=== PATIENT | male | born 2005 | race Caucasian/White ===

== ENCOUNTER 2025-02-09 20:51 | Emergency (ER) | payer BC, SELFPAY ==
[2025-02-09 21:04] VITALS: BP 124/69; PULSE 88; RESP 18; TEMP 36.9; O2SAT 97; BMI 25.0
[2025-02-09 22:08] VITALS: O2SAT 98
--- NOTE | 2025-02-09 22:08 | CRLHL7_ITS ---
For Patients: As a result of the Century Cures Act, medical imaging exams and procedure reports are released immediately into your electronic medical record. You may view this report before your referring provider. If you have questions, please contact your health care provider. Indication: Chest pain. Technique: Chest two views. Comparison: None. Findings/Impression: The heart is not abnormally enlarged. Mediastinal contours are grossly within normal limits. No confluent airspace opacity appreciated. No pleural effusion or pneumothorax. No acute osseous abnormality. Dictated by Myles Walker MD @ 02/09/2025 10:55:06 PM (Electronically Signed)
--- OUTSIDE RECORDS SUMMARY | 2025-02-09 22:23 | XMS_ITS | Clinical Summary ---
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 22 g 5 02/05/20 25 cephalexin 500 mg capsuleIndicati ons:Cellulitis of right lower extremity Take 1 Capsule (500 mg) by mouth three times daily for 5 days. 15 Capsule 5 02/05/20 25 Active Problems No known active problems Encounters Date Type Department Care Team Description 01/30/2025 Telephone [facility] [address] [place] [address] Cricket Duarte MD Skin Problem from Last 3 Months Immunizations Immunization Administration Dates Next Due DTaP-IPV (Kinrix) 12/05/2008 Dtap-5 Pertussis Antigens 06/30/2005,09/09/2004, 05/27/2004,2003 HIB PRP-OMP (PedvaxHIB) 09/09/2004,05/27/2004, HPV 9 (Gardasil 9) 12/05/2020,12/14/2018, 019 HepA-HepB (Twinrix) 10/14/2018 Hepatitis B, Unspecified 09/15/2006(Deferred: Errol dey Refused) Inactivated Polio Vaccine 09/09/2004,05/27/2004, 2003 Influenza A (H1N1), Inactivated 04/07/2009 Influenza, IIV4 04/10/2020 MMR 12/05/2008,06/30/2005 Meningococcal Vaccine (Menactra) 12/05/2020,08/3 05/2015 Pneumococcal, Unspecified 09/15/2006(Deferred: P atient Refused) Tdap 10/13/2015 Varicella Vaccine 09/15/2006(Deferred: Patient R efused) Social History Tobacco Use Types Packs/Day Years Used Date Smoking Tobacco: Never Assessed Sex and Gender Information Value Date Recorded Sex Assigned at Not on file Legal Sex Male 1:05 PM CDT Gender Identity Not on file Sexual Orientation Not on file Obstetrics History Last Filed Vital Signs Vital Sign Reading Time Taken Comments Blood Pressure 113/70 03/26/2023 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 Pulse 57 03/26/2023 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 Temperature 36.6 C (97.8 F) 10/13/2015 1:35 PM CDT Respiratory Rate 18 10/13/2015 1:35 PM CDT Oxygen Saturation 100% 03/26/2023 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 Inhaled Oxygen Concentration - - Weight 89 kg (196 lb 3.2 oz) 03/26/2023 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 Height 192.6 cm (6' 3.83) 03/26/2023 7:26 AM CS T Body Mass Index 23.99 03/26/2023 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 Plan of Treatment Health Maintenance Due Date Last Done Comments Depression screening for age 12+ 2015 HIV for age 15-65 2018 Hepatitis B series for 19+ (2 of 3 - 3-dose series) 11/11/2018 10/14/2018 Hepatitis C screening for age 18-79 2021 BMI (ht and wt on same day) for age 18+ 03/26/2024 03/26/2023 COVID-19 vaccine series (2024- season) 2025 02/18/2023, 02/27/2022, 05/02/2021, Additional history exists Influenza Vaccine (#1) 2025 04/10/2020 Tetanus booster 10/12/2025 10/13/2015 RSV vaccine for adults or (1 - 1-dose 75+ series) 2078 HPV series for age 9-45 Completed 12/06/19, 12/14/2018, 10/14/2018 Meningococcal series for age 11-21 Completed 12/05/2020, 01/16/2016 Pneumococcal series for age 6-49 Aged Out No longer eligible based on patient's age to complete this topic Insurance [employer] 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 PCP - General 02/17/22
[2025-02-09 22:30] LABS: Lactate* 0.5 mmol/L (0.5-1.9)
[2025-02-09 22:31] LABS: Hematocrit* 41.9 % (37.0-53.0); Hemoglobin* 14.0 gm/dL (13.5-17.5); Immature Granulocytes Abs Auto 0.00 K/uL (0.00-0.30); Immature Granulocytes Pct Auto 0.0 %; Lymphocytes Absolute Auto 1.61 K/uL (0.90-2.90); Mean Corpuscular HGB Conc 33 gm/dL (32-36); Mean Corpuscular Hemoglobin 29 pg (26-34); Mean Corpuscular Volume 86 fL (80-100); RDW Coefficient of Variation % 12.5 % (11.5-15.5); Red Blood Count* 4.86 m/uL (4.30-5.90); White Blood Count* 6.98 K/uL (4.50-11.00)
--- NOTE | 2025-02-09 22:31 | ED.GENADULT ---
HPI - General Adult General Chief complaint: Arrhythmia/Palpitations Stated complaint: heart palpitations Time Seen by Provider: 02/09/25 22:08 Source: patient Mode of arrival: ambulatory Limitations: no limitations History of Present Illness HPI narrative: 19-year-old male presenting today with what he describes as a twitch in his chest. Patient states that he finished soccer practice and then felt a twitching in his chest for approximately 4 straight hours. He states that when this was happening he felt a little lightheaded. No nausea or vomiting. He has been fighting a cold for the last few days but that has gotten better. He denied any chest pain or significant shortness of breath when this occurred. He states that in the past every now and then he feels that same twitch but it only happens once or twice that he forgets about it. It has never been consistent like this for 4 straight hours. He states that now it has gone back to normal. He states that when he was feeling his pulse while this was happening he felt like his heart was skipping beats. He denies any family history of cardiac arrhythmias. Related Data Home Medications ?Medication ?Instructions ?Recorded ?Confirmed No Known Home Medications 02/09/25 02/09/25 Allergies Allergy/AdvReac Type Severity Reaction Status Date / Time No Known Drug Allergies Allergy Verified 02/09/25 21:03 Review of Systems Status of ROS: Reports: 10 or more systems reviewed and unremarkable except as noted in History and below [facility] Social History Smoking Status: Never smoker Do you use any of these nicotine containing products: None Second hand tobacco smoke exposure: No How often do you have a drink containing alcohol: 2-4 times a month How many standard drinks containing alcohol do you have on a typical day: 1 or 2 How often do you have six or more drinks on one occasion: Less than monthly AUDIT-C Alcohol total score: 3 Non-prescribed substance use: denies use service: No Exam Narrative: Exam Narrative: Well-nourished well-developed patient in no acute distress. Alert and oriented. Answers questions appropriately. Mood and affect are appropriate. Thoughts are goal oriented and rational. No tangential or magical thinking noted. Patient speaks in full sentences without needing to catch His breath. HEENT: Normocephalic atraumatic. Pupils are equally round reactive to light. Extraocular muscles are intact. Conjunctivae are moist without any icterus noted. Cardiovascular: Heart is regular rate and rhythm S1 and S2 are present without any murmurs. Lungs: Clear to auscultation bilaterally no wheezes rhonchi or rales are appreciated. Patient takes deep breaths without any discomfort. Extremities: Bilateral lower extremities are without edema. Normal DP and PT pulses. Skin: Well perfused without any obvious rashes. Const: Vital Signs, click to edit/add: Vital Signs - 24 hr 02/09/25 21:04 02/09/25 22:08 Temperature 98.4 F Pulse Rate [Pulse Oximeter] 88 Respiratory Rate 18 [facility] 124[facility]69 Pulse Oximetry 97 98 Oxygen Delivery Me thod Room Air Course Course ED Course: Patient's blood work was entirely normal. Chest x-ray, read by me, does not show any acute pathology. EKG, read by me, shows normal sinus rhythm with a pulse of 73, he does have an RSR' pattern in V1. While on a heart monitor patient did state that he felt those which is every meal mentally did correspond with PACs on the heart monitor. Vital Signs Vital signs: Initial Vital Signs Temperature 98.4 F 02/09/25 21:04 Temperature Source Temporal Artery Scan 02/09/25 21:04 Pulse Rate 88 02/09/25 21:04 Respiratory Rate 18 02/09/25 21:04 Blood Pressure 124/69 02/09/25 21:04 Blood Pressure Mean 87 02/09/25 21:04 Pulse Oximetry 97 02/09/25 21:04 Oxygen Delivery Method Room Air 02/09/25 21:04 Vital Signs Temperature 98.4 F 02/09/25 21:04 Pulse Rate 88 02/09/25 21:04 Respiratory Rate 18 02/09/25 21:04 Blood Pressure 124/69 02/09/25 21:04 Pulse Oximetry 97 02/09/25 21:04 Oxygen Delivery Method Room Air 02/09/25 21:04 Temperature 98.4 F 02/09/25 21:04 Pulse Rate 88 02/09/25 21:04 Respiratory Rate 18 02/09/25 21:04 Blood Pressure 124/69 02/09/25 21:04 Pulse Oximetry 98 02/09/25 22:08 Oxygen Delivery Method Room Air 02/09/25 21:04 Medical Decision Making MDM Narrative Medical decision making narrative: [age] male with palpitations. Duration of which concerning. RSR abnormality noted on EKG could be a normal variant, however given his symptomatic palpitations earlier in the day I do recommend an echocardiogram. Lab Data Lab results reviewed: Yes I reviewed the patient's lab results Labs: Lab Results 02/09/25 02/09/25 Range/Units 22:15 22:25 WBC 6.98 (4.50-11.00) K/uL RBC 4.86 (4.30-5.90) m/uL Hgb 14.0 (13.5-17.5) gm/dL Hct 41.9 (37.0-53.0) % MCV 86 (80-100) fL MCH 29 (26-34) pg MCHC 33 (32-36) gm/dL RDW Coeff of Coco 12.5 (11.5-15.5) % Plt Count 163 (140-440) K/uL Neut % (Auto) 61.0 (42.0-72.0) % Lymph % (Auto) 23.1 (20-44) % [place] % (Auto) 13.0 H (0.0-11.0) % Eos % (Auto) 2.6 (0.0-7.0) % Baso % (Auto) 0.3 (0.0-3.0) % Neut # (Auto) 4.26 (1.7-7.0) K/uL Lymph # (Auto) 1.61 (0.90-2.90) K/uL [place] # (Auto) 0.90 (0.00-0.90) K/UL Eos # (Auto) 0.18 (0.00-0.50) K/uL Baso # (Auto) 0.02 (0.00-0.30) K/uL Abs Immat Gran (auto) 0.00 (0.00-0.30) K/uL Imm/Tot Granulo (auto) 0.0 % Sodium 136 (135-149) mmol/L Potassium 3.8 (3.6-5.1) mmol/L Chloride 101 (96-114) mmol/L Carbon Dioxide 28 (20-32) mmol/L Anion Gap 7 (7-15) mEq/L BUN 19 (5-24) mg/dL Creatinine 1.0 (0.5-1.5) mg/dL Estimated Creat Clear 139.66 Estimated GFR 110 ml/min Glucose 97 (60-115) mg/dL Lactate 0.5 (0.5-1.9) mmol/L Calcium 9.0 (8.4-10.6) mg/dL Magnesium 2.1 (1.5-2.6) mg/dL Total Bilirubin 0.5 (0.1-1.5) mg/dL Direct Bilirubin 0.3 (0.0-0.5) mg/dL AST 38 H (12-35) U/L ALT 27 (4-50) U/L Alkaline Phosphatase 121 (40-150) U/L Troponin I 0.03 (0.01-0.04) ng/mL C-Reactive Protein 0.6 (0.5-1.0) mg/dL Total Protein 7.5 (6.0-8.3) g/dL Albumin 4.5 (3.3-5.0) g/dL TSH 1.780 (0.270-4.20) uIU/mL Salicylates < 1.0 L (1.0-10) mg/dL Urine Opiates Screen Negative (Negative) Ur Oxycodone Screen Negative (Negative) Urine Methadone Screen Negative (Negative) Acetaminophen < 10.0 (10.0-30.0) ug/mL Ur Barbiturates Screen Negative (Negative) U Tricyclic Antidepress Negative (Negative) Ur Phencyclidine Scrn Negative (Negative) Ur Amphetamines Screen Negative (Negative) U Methamphetamines Scrn Negative (Negative) U Benzodiazepines Scrn Negative (Negative) Urine Cocaine Screen Negative (Negative) U Marijuana (THC) Screen Negative (Negative) Ur Drug Screen Comment See Note Ethyl Alcohol < 0.01 (0.01-0.03) % SARS-CoV-2 (PCR) Negative SARS-CoV-2 (Negative) Influenza Type A (PCR) Negative PCR FLU A (Negative) Influenza Type B (PCR) Negative PCR FLU B (Negative) RSV (PCR) Negative PCR RSV (Negative) Imaging Data Chest x-ray: Attestation: I have reviewed the pertinent imaging results. Radiologist's impression: Technique: Chest two views. Comparison: None. Findings/Impression: The heart is not abnormally enlarged. Mediastinal contours are grossly within normal limits. No confluent airspace opacity appreciated. No pleural effusion or pneumothorax. No acute osseous abnormality. ECG Data Attestation: I personally reviewed and interpreted this ECG as follows: Discharge Plan Discharge Clinical Impression: Palpitations Patient Disposition: Home, Self-Care Condition: Stable Additional Instructions: You need to follow-up with your primary care provider so that they can order an echocardiogram for you. This is an ultrasound of your heart. You should not play any sports and refrain from any rigorous physical activity until you have had your echocardiogram and are cleared to return to play by your primary care provider. Prescriptions: No Action No Known Home Medications Follow Up/Referrals: Provider,Not a Local [Primary Care Provider, Family Practice] Stand Alone Forms: [employer] Info Instructions
[2025-02-09 22:38] LABS: Slide Review Reflex No
[2025-02-09 22:49] LABS: Albumin* 4.5 g/dL (3.3-5.0); Chloride* 101 mmol/L (96-114); Sodium* 136 mmol/L (135-149)
[2025-02-09 22:50] LABS: Potassium* 3.8 mmol/L (3.6-5.1)
[2025-02-09 22:51] LABS: Cannabinoid Screen Urine Negative (Negative); Methamphetamines Screen Urine Negative (Negative); Tricyclic Antidepressant Urine Negative (Negative)
[2025-02-09 22:52] LABS: Blood Urea Nitrogen* 19 mg/dL (5-24); Creatinine* 1.0 mg/dL (0.5-1.5); Est. Creatinine Clearance* 139.66; Estimated Glomerular Filt Rate 110 ml/min
[2025-02-09 22:53] LABS: Alanine Aminotransferase* 27 U/L (4-50); Alkaline Phosphatase* 121 U/L (40-150); Aspartate Amino Transferase* 38 U/L (12-35); Bilirubin Direct* 0.3 mg/dL (0.0-0.5); Bilirubin Total* 0.5 mg/dL (0.1-1.5); Calcium* 9.0 mg/dL (8.4-10.6); Glucose* 97 mg/dL (60-115); Total Protein* 7.5 g/dL (6.0-8.3)
[2025-02-09 22:55] LABS: Anion Gap 7 mEq/L (7-15); Carbon Dioxide* 28 mmol/L (20-32)
[2025-02-09 22:58] LABS: Salicylate* < 1.0 mg/dL (1.0-10)
[2025-02-09 23:00] LABS: Acetaminophen* < 10.0 ug/mL (10.0-30.0); Ethanol* < 0.01 % (0.01-0.03)
[2025-02-09 23:14] LABS: PCR FLU A Negative PCR FLU A (Negative); PCR FLU B Negative PCR FLU B (Negative); PCR RSV Negative PCR RSV (Negative); SARS PCR* Negative SARS-CoV-2 (Negative)
[2025-02-10] VITALS: BP 120/72; PULSE 80; RESP 18
== END 2025-02-10 00:01 | disposition home or self-care (01) ==
PROVIDERS: Emergency Provider Family Medicine
DX: R00.2 Palpitations (principal); R42 Dizziness and giddiness; Z82.49 Family history of ischemic heart disease and other diseases of the circulatory system
CPT/HCPCS: 36415; 71046; 80048; 80076; 80143; 80179; 80306; 82077; 83605; 83735; 84443; 84484; 85025; 86140; 87631; 93005; 94761; 99284; 99285